=== PATIENT | female | born 1990 | race Hispanic/Latino ===

== ENCOUNTER 2018-10-25 12:02 | Day surgery (SDC) | payer OTHER ==
[2018-10-25] VITALS (7 sets, daily range): BP systolic 85–107; BP diastolic 45–64
[2018-10-25] MEDS ORDERED: SODIUM CHLORIDE 0.9% 1000ML 1,000 ML IV ONE (12:57)
[2018-10-25] MEDS ORDERED: PROPOFOL 10 MG/ML 20ML VIAL IV ONE ×3 (13:27→13:37)
[2018-10-25] MEDS ORDERED: LIDOCAINE HCL 1% 20 ML VIAL ONE (13:28)
== END 2018-10-25 14:45 | disposition home or self-care (01) ==
LOC: ENDO 12:02
PROVIDERS: ATTEND Internal Medicine Gastroenterology
DX: K62.1 Rectal polyp (principal); K29.50 Unspecified chronic gastritis without bleeding; B96.81 Helicobacter pylori [H. pylori] as the cause of diseases classified elsewhere; K20.9 Esophagitis, unspecified; K57.30 Diverticulosis of large intestine without perforation or abscess without bleeding; K64.0 First degree hemorrhoids; Z79.899 Other long term (current) drug therapy; Z83.3 Family history of diabetes mellitus; Z80.0 Family history of malignant neoplasm of digestive organs; Z82.3 Family history of stroke
CPT/HCPCS: 43239; 45380; 81025; 88305; J2704 ×3; J7030